=== PATIENT | female | born 1985 | race Hispanic/Latino ===

== ENCOUNTER 2016-08-07 05:47 | Day surgery (SDC) | payer OTHER ==
[2016-08-07] VITALS (11 sets, daily range): BP systolic 97–116; BP diastolic 8–86; PULSE 56–72; RESP 1–22; O2SAT 97–100
[~2016-08-07] VITALS: Ht 157.5 cm; Wt 60.0 kg
[2016-08-07] MEDS ORDERED: Ondansetron 2 mg/mL 2 mL Inj ONE (05:48)
[2016-08-07] MEDS ORDERED: Dexamethasone 4 mg/mL Inj ONE (05:48)
[2016-08-07] MEDS ORDERED: Succinylcholine Chloride 20 mg/mL 5 mL Inj ONE (05:48)
[2016-08-07] MEDS ORDERED: fentaNYL-PF 50 mCg/mL 2 mL Inj ONE (05:48)
[2016-08-07] MEDS ORDERED: Propofol 10,000 mCg/mL 20 mL Inj ONE (05:48)
[2016-08-07] MEDS ORDERED: MetoCLOpramide 5 mg/mL 2 mL Inj ONE (05:48)
[2016-08-07] MEDS ORDERED: Rocuronium 10 mg/mL 5 mL Inj ONE (05:48)
[2016-08-07] MEDS ORDERED: Lidocaine PF 1% 30 mL Inj ONE (05:48)
[2016-08-07] MEDS: Lactated Ringer's 1,000 ML IV SCH ×3 (05:51→07:30)
--- NOTE | 2016-08-07 07:25 | PCM.HPANE ---
Patient Data Date of Service: Aug 07, 2016 Surgeon Admitting Provider: Attending Provider:Chuck Giron MD Primary Care Physician:Chuck Giron MD Other Provider: Reason for Visit Desires Sterilization Ht/WT & BMI Height (Feet): 5 Height (Inches): 2 Weight (Kilograms): 60 Body Mass Index 24.00 Allergies Coded Allergies: No Known Allergies (Unverified , 08/06/16) Past Anesthesia History Anesthesia History: Denies:: Anesthesia Reactions, Malignant Hyperthermia Diabetes History Hx Diabetes?: No MRSA MRSA: No Medications Hypertension Medication: No Home Meds Incl Beta Eneida: No Discontinued Reported Medications Vit No.124/Iron/FA ( Vitamin Tablet)27 Mg Iron-800 Mcg Tablet1 Each PO DAILY 05/17/15 Discontinued Scripts Ibuprofen 600 Mg [place]149 Mg PO Q6H PRN For Mild Pain #30 TABLET Prov:Chuck Giron MD 04/26/16 History History of ENT Problems?: Yes Other HEENT Pertinent History: S/P TONSILLECTOMY Hx of Heart Problems?: No Cardiovascular History: Denies:: Chest Pain Congestive Heart Failure Coronary Artery Disease Heart Murmur Hypertension Other Cardiac History: no SOB/HI Hx of Respiratory Problem?: No Respiratory History: Denies:: Tuberculosis Use of C-PAP Machine Hx Neurologic Problems?: No Neurological History: Denies:: CVA Seizures Hx of GI Problems?: Yes Gastrointestinal History: Positive for:: Gall Bladder Disease (S/P FER) Denies:: Gastroesphageal Reflux Hx of Problems?: No Female Hx: Denies:: Currently (NEG TEST) Skin History: Denies:: History Skin Disorders? Pressure Ulcers Hx Musculoskeletal Problems?: No Hx of Psycho/Social Problems?: Yes Psycho Social History: Positive for:: Hx Depression (HX OF) Hx Surgeries?: Yes (TONSILLECTOMY,FER) Hx Any Other Health Problems?: Yes Other History: Positive for:: Hospitalization (CHILDBIRTH) Denies:: Cancer Endocrine Disease Thyroid Disease (HX OF THYROID DYSFUNCTION DURING ONE OF HER PREGNANCIES- RESOLVED) Hx Diabetes: No Hx Alcohol Use: NoHx Substance Use: No Smoking Status: Never Smoker Have You Smoked inLast 12 mo: No Stop/Bang Treated for Sleep Apnea?: No Do You Have a CPAP Machine?: No S-Snoring: Do You Snore Loudly: No T-Tired: feel tired, fatigued: No O-Obsered: Observed not breath: No P-Blood Pressure: treated: No B- Body Mass Index > 35 kg/m2: No A- Age over 50: No N- Neck Large Circumference: No G- Gender Male: No KACY Total Score: 0 KACY Risk Assessment: Low Risk, <3 Yes Risk Assessment Category Category 1A: Patient has history of documented sleep apnea, and HAS NOT received any narcotic, sedative or anesthesia administration during this stay. Category 1B: Patient has history of documented sleep apnea, and HAS received any narcotic , sedative or anesthesia administration during this stay Category 2: Patient has SUSPECTED Obstructive Sleep Apnea, and HAS received any narcotic , sedative or anesthesia administration during this stay. Category 3: Patient has SUSPECTED Obstructive Sleep Apnea and HAS NOT received narcotic, sedative or anesthesia administration during this stay. Category 4: Outpatient in Procedural Areas with known sleep apnea or who screen positive for High Risk via the STOP/BANG questionnaire. Exam Exam Vital Signs Vital Signs Date Time Temp Pulse Resp B/P Pulse Ox O2 Delivery O2 Flow Rate FiO2 08/07/16 06:06 71 15 97/68 97 Room Air General Appearance: Alert, Oriented X3, Cooperative, No Acute Distress HEENT/AIRWAY: MP 2, Neck Movement (from), Mouth Opening (>3), Other (tmd>3) Lungs: Clear to Auscultation Heart: Exam Unremarkable, Regular Rate/Rhythm, Normal S1, Normal S2, No Murmurs /Rubs/Gallops Meds/Labs/Diagnostics Admission Meds Current Medications Lactated Ringer's (Lr) 1,000 ml @ 120 mls/hr Q8H20M IV Last administered on t 07:13; Start 08/07/16 at 05:00; Stop 08/07/16 at 13:19 Plan Impression Patient chart reviewed, patient interviewed and anesthestic plan with risks, benefits, and alternatives discussed, and informed consent obtained. NPO Status: 199908/06/16 ASA Physical Status: ASA1 Normal Healthy Anesthetic Plan: GA Bene/Risks/Altern/Consents: Yes HP Complete Prior to Induction: Yes Kevin Verde MD Aug 07, 2016 07:24
[2016-08-07] MEDS ORDERED: Bupivacaine-MPF 0.5% W/EPI 30 mL Inj INJ ONE (07:30)
--- NOTE | 2016-08-07 07:48 | HP PRE OP ---
[address] [address] PREOPERATIVE HISTORY AND PHYSICAL PATIENT: MEENAKSHI ARCE : 1985 MR#: [id number] ADMIT: 08/07/2016 JOB ID: [id number] IDENTIFICATION: The patient is a 31-year-old, G4, P4, AB 0, woman. CHIEF COMPLAINT: Desires sterilization by laparoscopic tubal ligation. HISTORY OF PRESENT ILLNESS: This patient underwent vaginal delivery of 4th child on April 25, 2016. During the timeframe, she did well, and after consideration of contraceptive options, she requested tubal ligation. She has been certain that she has not wanted any additional children, and she had had various problems with reversible contraceptive methods, and her will not undergo a vasectomy. She has understood risks of tubal ligation including bleeding, infection, wound problems and pain, potential risk to internal organs, including the urinary tract and bowel and large blood vessels, anesthetic risks, etc. There is a possibility that laparotomy could be required due to some problem. She realizes that tubal ligation is meant to be a permanent procedure, not easily reversible, although there is a slim chance of tubal ligation failure that could lead to intrauterine or tubal . All questions have been answered, no guarantees have been stated or implied, and the patient has signed informed consent for surgery. In summary, the patient will be admitted to [facility] on August 07, 2016 on which day she will undergo laparoscopic tubal ligation, likely via Falope rings, although with a chance of electrocoagulation if needed. PHYSICAL EXAMINATION: On admission, height 61 inches. Weight 131 pounds. Blood pressure 98/64. Neck: No thyromegaly. Lungs: Clear to auscultation. Heart: Regular in rate and rhythm. Abdomen: Nontender. No mass. Note surgical scarring (prior cholecystectomy on examination). Negative at chest in June 2016. IMPRESSION: 1. Desires sterilization by laparoscopic tubal ligation, the reason for admission on August 07, 2016. 2. Surgical history: a. Reproductive history-vaginal deliveries. b. Cholecystectomy. c. Tonsillectomy. 3. History of a thyroid problem that then reportedly resolved, note normal free T4 in 2016. 4. Depression history, used Prozac previously, no problem on medication requirement now. 5. Social history-the patient is . Note delivery of five children, including a set of twins,who live with their father in [place]. 6. No known drug allergies. 7. Family history of breast cancer (paternal grandmother). PLAN: The patient will be admitted to [facility] on August 07, 2016 and undergo laparoscopic tubal ligation via Falope rings. CARLOS
[2016-08-07] MEDS ORDERED: Lactated Ringer's 1,000 ML IV SCH (07:59)
[2016-08-07] MEDS ORDERED: Lactated Ringer's 500 ML IV PRN (07:59)
[2016-08-07] MEDS ORDERED: EPHEDrine Sulfate 50 mg/mL Inj IM PRN (08:00)
[2016-08-07] MEDS ORDERED: EPHEDrine Sulfate 50 mg/mL Inj IVPUSH PRN (08:00)
[2016-08-07] MEDS ORDERED: Phenylephrine 10,000 mCg/mL Inj IVPUSH PRN (08:00)
[2016-08-07] MEDS ORDERED: Dexamethasone 4 mg/mL Inj IVPUSH PRN (08:00)
[2016-08-07] MEDS ORDERED: Ondansetron 2 mg/mL 2 mL Inj IVPUSH PRN ×2 (08:00→09:10)
[2016-08-07] MEDS ORDERED: MetoCLOpramide 5 mg/mL 2 mL Inj IVPUSH PRN ×2 (08:00→09:10)
[2016-08-07] MEDS ORDERED: hydrOXYzine Inj 25 MG/1 mL SDV IM PRN (08:00)
[2016-08-07] MEDS ORDERED: HYDROmorphone 1 mg/mL Inj IVPUSH PRN ×2 (08:00→09:10)
[2016-08-07] MEDS ORDERED: oxyCODONE-Acetamin 5-325 mg Tablet PO PRN (09:10)
[2016-08-07] MEDS: fentaNYL-PF 50 mCg/mL 2 mL Inj IVPUSH PRN ×2 (09:11→09:21)
--- NOTE | 2016-08-07 17:44 | PCM.ANEP1 ---
Post Anesthesia Phase 1 PACU Phase 1 Assessment Date of Service: Aug 07, 2016 Vital Signs Vital Signs Date Time Temp Pulse Resp B/P Pulse Ox O2 Delivery O2 Flow Rate FiO2 08/07/16 10:25 65 18 116/64 100 Room Air 08/07/16 09:45 36.7 59 16 106/66 100 Room Air Anesthetic Administered: GA Level of Alertness: Awake, talking LAI's with Equal Strength: Yes Pain: No Nausea or Vomiting: No Oxygen Delivery: Simple Mask Lungs: Clear to Auscultation Kevin Verde MD Aug 07, 2016 17:44
--- NOTE | 2016-08-07 17:45 | PCM.ANEP2 ---
Post Anesthesia Evaluation ASA/CMS Post Anesthesia VS in Patient's Normal Range?: Yes Resp Stable; Airway Patent?: Yes CV Function & Hydration Stable: Yes Mental Status Recovered?: Yes Pain control Satisfactory?: Yes N/V Control Satisfactory?: Yes Kevin Verde MD Aug 07, 2016 17:45
--- NOTE | 2016-08-07 19:40 | OP ---
[address] [address] OPERATIVE REPORT PATIENT: MEENAKSHI ARCE : 1985 MR#: [id number] ADMIT: 08/07/2016 JOB ID: [id number] DATE OF SURGERY: 08/07/2016 SURGEON: Chuck Giron M.D. ANESTHESIA: General. PREOPERATIVE DIAGNOSIS(ES): Desires sterilization by tubal ligation. POSTOPERATIVE DIAGNOSIS(ES): Desires sterilization by tubal ligation. PROCEDURE PERFORMED: Laparoscopic tubal ligation via Falope ring application. FINDINGS AT SURGERY: Uterus, fallopian tubes and ovaries were normal in appearance. At procedure's close, a Falope ring had been securely placed on the isthmic portion of each fallopian tube, with complete hemostasis noted and appropriate blanching of the isolated tube segment bilaterally. It certainly is anticipated the patient will do well during the postoperative time frame. The patient knows to do a test if she ever thinks she is and to notify my office if so, although this would be very, very unlikely. PROCEDURE IN DETAIL: The patient was placed in supine position on the operating table and general anesthesia was induced. She was then very carefully repositioned in the low dorsal lithotomy position and prepped and draped in usual sterile manner. A retractor was placed vaginally and a tenaculum on the anterior cervical lip and the ELVIA cannula was secured in place. Tenaculum and retractors were then removed. Attention was then directed to the abdomen where a short transverse subumbilical incision was made with a knife. This incision carried through skin and subcutaneous tissues and fascial layer. The peritoneal cavity was then carefully entered bluntly and trocar sheaths were secured in place. The laparoscope was then introduced and CO2 and light sources connected, and a video laparoscopy accomplished with findings as noted above. A 2nd puncture site was then made at the hairline at the midline transversely, with another trocar sheath secured in place. The probe was advanced to facilitate visualization of the pelvic structures. The Falope ring applicator was then individually loaded carefully followed by advancement into the pelvis and then placement superiorly of Falope ring on the isthmus portion of the right fallopian tube. Isolated and blanched tube segment resulted. Hemostasis was complete. The same procedure was then performed on the left side, and results were the same. Hemostasis was noted to be complete inside, CO2 gas was allowed to escape, the trocar sheath was removed, and instrument, needle and sponge counts were all found to be correct. The subumbilical vaginal incision was 1st closed with a purse-string stitch of 2-0 Vicryl suture. Each skin incision was then closed with interrupted vertical mattress stitches of 4-0 Vicryl suture. Hemostasis was noted to be complete. Mastisol was utilized and then dried followed by placement of 1/2 inch Steri-Strips over each incision. Bandages were then placed and procedure was now complete. Note that the ELVIA cannula had been expelled towards the end of the case, intact. Patient was returned to the supine position and awakened, and taken to recovery room. ESTIMATED BLOOD LOSS: Scant. COMPLICATIONS: None. PROGNOSIS: Good for surgical recovery. CARLOS
== END 2016-08-07 23:59 | disposition home or self-care (01) ==
LOC: SAS 05:47
PROVIDERS: ATTEND Obstetrics & Gynecology
DX: Z30.2 Encounter for sterilization (principal); F32.9 Major depressive disorder, single episode, unspecified
CPT/HCPCS: 58671; J0330; J1100; J2250; J2405; J2765; J3010; J7120